=== PATIENT | male | born 1990 | race Caucasian/White ===

== ENCOUNTER → 2019-01-20 | Outpatient (CLI) | payer BC ==
--- NOTE | 2019-01-20 12:46 | XR ---
Right ankle and right foot HISTORY: Pain 3 views of the right ankle, 3 views of the right foot are submitted. Bone mineralization, joint spaces and alignment are maintained. No fracture or dislocation. IMPRESSION: Unremarkable right ankle and right foot.
== END ==
LOC: RADXRYALE 10:21
PROVIDERS: ATTEND Family Medicine
DX: M25.571 Pain in right ankle and joints of right foot (principal); M79.671 Pain in right foot

== ENCOUNTER → 2019-02-07 | Outpatient (CLI) | payer BC ==
--- NOTE | 2019-02-08 15:12 | MR ---
EXAMINATION TYPE: MR ankle RT wo con DATE OF EXAM: 02/07/2019 COMPARISON: None HISTORY: Rt ankle pain and swelling Standard multiplanar, multisequence MRI departmental protocol Multiplanar, multisequence images of the right ankle were acquired. FINDINGS: Ankle mortise is anatomic. Collateral ligaments are intact. There is mild ankle joint effus ion. Achilles tendon is intact. Plantar fascia is intact. The medial and lateral flexor tendons of the ank le appear intact. I see no bony destructive process. IMPRESSION: Minimal ankle joint effusion consistent with mild nonspecific synovitis. No evidence of ligament or t endon tear. No fracture.
== END ==
LOC: RADMRIMAIN 18:01
PROVIDERS: ATTEND Family Medicine
DX: M25.571 Pain in right ankle and joints of right foot (principal); M79.671 Pain in right foot

== ENCOUNTER → 2019-08-26 | Outpatient (CLI) | payer BC ==
--- NOTE | 2019-08-26 10:43 | XR ---
EXAMINATION TYPE: XR lumbosacral spine min 4V DATE OF EXAM: 08/26/2019 COMPARISON: None HISTORY: Injury TECHNIQUE: Five-view lumbar spine FINDINGS: There 5 lumbar-type vertebral bodies. The pedicles are intact. Disc heights are preserved. Vertebral body heights are preserved. Alignment is straightened which can be related to positioning o r muscle spasm. IMPRESSION: 1. No acute osseous abnormality lumbar spine
== END | disposition home or self-care (01) ==
LOC: RADXRYALE 10:02
PROVIDERS: ATTEND Family Medicine
DX: M54.5 Low back pain (principal)
CPT/HCPCS: 72110

== ENCOUNTER → 2022-07-18 | Outpatient (CLI) | payer OTHER ==
--- NOTE | 2022-07-19 08:17 | XR ---
EXAMINATION TYPE: XR abdomen 1V DATE OF EXAM: 07/18/2022 COMPARISON: NONE HISTORY: Pain TECHNIQUE: One view abdominal series FINDINGS: The osseous structures are intact. The bowel gas pattern is nonspecific. Lung bases are clear. Scler otic density involving the left femur and right inferior pubic ramus most likely is a lucency overlyi ng the sacrum and bowel content. IMPRESSION: 1. Nonspecific abdomen. There is a rounded lucency overlying the left sacrum. Recommend bilateral ob lique views of the pelvis of the pelvis to determine if this is related to an intraosseous lesion or overlying bowel gas.
== END | disposition home or self-care (01) ==
LOC: RADXRYALE 16:04
PROVIDERS: ATTEND Physician Assistant
DX: R10.30 Lower abdominal pain, unspecified (principal)
CPT/HCPCS: 74018

== ENCOUNTER → 2022-07-20 | Outpatient (CLI) | payer OTHER ==
--- NOTE | 2022-07-20 08:04 | US ---
EXAMINATION TYPE: US abdomen limited DATE OF EXAM: 07/20/2022 COMPARISON: NONE CLINICAL HISTORY: 32-year-old male R10.30 LOW ABD PAIN. pt is experiencing sudden pain in the lower l eft abd that radiates down to the left groin, no known trauma TECHNIQUE: Scanned over the patient's area of concern. FINDINGS: Ocular Pathologist notes: No abnormality noted by ultrasound. IMPRESSION: Targeted scanning along the left lower quadrant at the site of patient's pain. No discrete abnormalit y of the superficial soft tissues in this region.
--- NOTE | 2022-07-20 08:15 | US ---
EXAMINATION TYPE: US scrotum with doppler. DATE OF EXAM: 07/20/2022 COMPARISON: NONE CLINICAL HISTORY: 32-year-old male R30.0 DYSURIA,R35.0 R39.15 FREQUENCY URINATION. TECHNIQUE: Grayscale and color Doppler Duplex imaging performed of the scrotum. EXAM MEASUREMENTS: TESTICLES: Right Testicle: 4.9 x 2.8 x 3.3 cm Left Testicle: 4.5 x 2.8 x 3.1 cm EPIDIDYMIS HEAD: Right Epididymis: 1.3 x 0.7 cm Left Epididymis: 1.5 x 1.0 cm Doppler performed to assess for testicular vascularity; good bilateral color flow and waveforms are s een. There is no evidence of testicular torsion. Presence of hydroceles: Trace on both sides Presence of varicoceles: no No abnormality seen by ultrasound. IMPRESSION: Trace hydroceles on both sides. Otherwise, unremarkable sonographic examination of the scrotum/testic les.
== END | disposition home or self-care (01) ==
LOC: RADUSWWP 07:06
PROVIDERS: ATTEND Family Medicine
DX: N43.3 Hydrocele, unspecified (principal); R10.32 Left lower quadrant pain; R30.0 Dysuria; M54.50 Low back pain, unspecified
CPT/HCPCS: 76705; 76870; 93975

== ENCOUNTER → 2022-07-20 | Outpatient (CLI) | payer OTHER ==
--- NOTE | 2022-07-21 08:41 | XR ---
EXAMINATION TYPE: XR pelvis AP view DATE OF EXAM: 07/20/2022 COMPARISON: 07/18/2022 HISTORY: Abnormal finding The osseous structures are intact and the joint spaces are preserved. No acute fracture is seen. Vi sualized bowel gas pattern is nonspecific. Lucent area overlying the left sacrum appears persistent on oblique images IMPRESSION: 1. Persistent lucent defect overlying the sacrum. Recommend CT of the pelvis.
== END | disposition home or self-care (01) ==
LOC: RADXRYALE 16:10
PROVIDERS: ATTEND Physician Assistant
DX: R10.30 Lower abdominal pain, unspecified (principal)
CPT/HCPCS: 72170

== ENCOUNTER → 2022-07-28 | Outpatient (CLI) | payer OTHER ==
--- NOTE | 2022-07-28 19:59 | CT ---
EXAMINATION TYPE: CT abdomen pelvis w con CT DLP: 673.9 mGycm, Automated exposure control for dose reduction was used. DATE OF EXAM: 07/28/2022 7:35 PM COMPARISON: Radiograph 07/20/2022, scrotal ultrasound 07/20/2022 CLINICAL INDICATION:Male, 32 years old with history of R10.30; Left side groin pain. Abnormal finding on prior XR and US. TECHNIQUE: Axial CT of the abdomen and pelvis. Sagittal and coronal reformats were created on a [employer] workstation. Contrast used:100cc mL of Isovue 300 with IV Contrast, Oral contrast used: with Oral Contrast FINDINGS: LOWER CHEST: Unremarkable ABDOMEN LIVER: Unremarkable GALLBLADDER AND BILE DUCTS: Unremarkable. PANCREAS: Unremarkable. SPLEEN: Unremarkable. ADRENAL GLANDS: Unremarkable. KIDNEYS AND URETERS: Right nonobstructing calculi measuring up to 3 mm. Left renal cyst. No obstructi ve uropathy. PELVIS BLADDER: Unremarkable REPRODUCTIVE: Unremarkable. ABDOMEN & PELVIS STOMACH AND BOWEL: No evidence of bowel obstruction. PERITONEUM/RETROPERITONEUM: No evidence of pneumoperitoneum or free fluid. VASCULATURE: No evidence of aortic aneurysm. MUSCULOSKELETAL: There is a focus of gas is seen within the left iliac bone correlating with lucency seen on prior radiograph. Uncertain no evidence for aggressive features. This does abut the sacroilia c joint This measures up to 12 mm. And -870 Hounsfield units. LYMPH NODES: No gross evidence for lymphadenopathy. SOFT TISSUE/ABDOMINAL WALL: Fat-containing umbilical hernia. No evidence for hernia within the groin. IMPRESSION: 1. No acute abdominal process. No evidence for left groin hernia. No obstructive uropathy. 2. Lucent defect overlying the left sacrum correlates with gas within the left iliac bone. This is l ikely on a degenerative basis with the sacroiliac joint.
== END | disposition home or self-care (01) ==
LOC: RADCTMAIN 17:29
PROVIDERS: ATTEND Family Medicine
DX: R10.30 Lower abdominal pain, unspecified (principal); R93.89 Abnormal findings on diagnostic imaging of other specified body structures
CPT/HCPCS: 74177; Q9967

== ENCOUNTER 2023-08-27 22:05 | Emergency (ER) | payer OTHER ==
[2023-08-27 22:45] VITALS: BP 137/89; PULSE 76; RESP 18; TEMP 98.3
--- NOTE | 2023-08-27 22:57 | ED ---
Arrhythmia/Palpitations HPI - General Chief Complaint: Arrhythmia/Palpitations Stated Complaint: Chest pain,Afib Time Seen by Provider: 08/27/23 22:30 Source: patient Mode of arrival: ambulatory Limitations: no limitations - History of Present Illness Initial Comments: 33 year old male with past medical history of WPW, A-fib who presents emergency department reporting palpitations. States that he does have a history of A-fib and is pretty conscientious as to when he is going into A-fib. States that he frequently has episodes however over the past couple of days the episodes have been excessive. He had previous ablation by Dr. Suarez. States that he has not had any issues since his ablation when he was 17 years old. He does not ta ke any medications. Denies any stimulant use. Patient denies any chest pain or difficulty breathing. No fevers. No other alleviating, precipitating or modifying factors - Related Data Previous Rx's Medication Instructions Recorded Hydrocodone/Acetaminophen [[place] 1 tab PO Q4HR PRN #15 tab 02/04/16 5-325] Naproxen 500 mg PO Q12HR #20 tab 02/04/16 Allergies Allergy/AdvReac Type Severity Reaction Status Date / Time coconut Allergy Unknown Verified 08/27/23 22:26 Penicillins Allergy Unknown Verified 08/27/23 22:26 Childhood oatmeal Allergy Severe Unknown Uncoded 08/27/23 22:26 Review of Systems ROS Statement: Those systems with pertinent positive or pertinent negative responses have been documented in the HPI. ROS Other: All systems not noted in ROS Statement are negative. Past Medical History Past Medical History: Atrial Fibrillation, Asthma Additional Past Medical History / Comment(s): WPW History of Any Multi-Drug Resistant Organisms: None Reported Past Surgical History: Ablation Past Psychological History: No Psychological Hx Reported Smoking Status: Never smoker Past Alcohol Use History: None Reported Past Drug Use History: None Reported General Exam Limitations: no limitations General appearance: alert, in no apparent distress Head exam: Present: atraumatic, normocephalic, normal inspection Eye exam: Present: normal appearance, PERRL, EOMI. Absent: scleral icterus, conjunctival injection, periorbital swelling ENT exam: Present: normal exam, mucous membranes moist Neck exam: Present: normal inspection. Absent: tenderness, meningismus, lymphadenopathy Respiratory exam: Present: normal lung sounds bilaterally. Absent: respiratory distress, wheezes, rales, rhonchi, stridor Cardiovascular Exam: Present: regular rate, normal rhythm, normal heart sounds. Absent: systolic murmur, diastolic murmur, rubs, gallop, clicks GI/Abdominal exam: Present: soft, normal bowel sounds. Absent: distended, tenderness, guarding, rebound, rigid Extremities exam: Present: normal inspection, full ROM, normal capillary refill. Absent: tenderness, pedal edema, joint swelling, calf tenderness Back exam: Present: normal inspection Neurological exam: Present: alert, oriented X3, CN II-XII intact Psychiatric exam: Present: normal affect, normal mood Skin exam: Present: warm, dry, intact, normal color. Absent: rash Course Vital Signs 08/27/23 22:24 Temperature 98.3 F Pulse Rate 76 Respiratory 18 Rate Blood Pressure 137/89 O2 Sat by Pulse 99 Oximetry Medical Decision Making - Medical Decision Making Was pt. sent in by a medical professional or institution (, PA, LEAD DRIVER, urgent care, hospital, or prison...) When possible be specific @ -No Did you speak to anyone other than the patient for history (EMS, parent, family, police, friend...)? What history was obtained from this source @ -No Did you review nursing and triage notes (agree or disagree)? Why? @ -I reviewed and agree with nursing and triage notes Were old charts reviewed (outside hosp., previous admission, EMS record, old EKG, old radiological studies, urgent care reports/EKG's, prison records)? Report findings @ -No old charts were reviewed Differential Diagnosis (chest pain, altered mental status, abdominal pain women, abdominal pain men, vaginal bleeding, weakness, fever, dyspnea, syncope, headache, dizziness, GI bleed, back pain, seizure, CVA, palpatations, mental health, musculoskeletal)? @ -Differential Palpitations Ventricular arrhythmias, atrial arrhythmias, myocardial infarction, anemia, thyrotoxicosis, electrolyte imbalance, hypokalemia, pulmonary embolism, pulmonary disease, drugs, alcohol, anxiety, stress.... This is not meant to be an all-inclusive list. EKG interpreted by me (3pts min.). @ -yes and demonstrates sinus rhythm with a rate of 77. CT interval 142. QRS 95. QTc of 372. No acute ST segment elevation or depression X-rays interpreted by me (1pt min.). @ -None done CT interpreted by me (1pt min.). @ -None done U/S interpreted by me (1pt. min.). @ -None done What testing was considered but not performed or refused? (CT, X-rays, U/S, labs)? Why? @ -Laboratory studies were considered however patient refused as he did not want to stay any longer in the emergency department. He was satisfied knowing that he was not in A-fib What meds were considered but not given or refused? Why? @ -None Did you discuss the management of the patient with other professionals (professionals i.e. Dr., PA, LEAD DRIVER, lab, RT, psych nurse, rn social services, palliative care physician, teacher, sanitation officer, casework supervisor)? Give summary @ -No Was smoking cessation discussed for >3mins.? @ -No Was critical care preformed (if so, how long)? @ -No Were there social determinants of health that impacted care today? How? (Homelessness, low income, unemployed, alcoholism, drug addiction, transportation, low edu. Level, literacy, decrease access to med. care, snf, rehab)? @ -No Was there de-escalation of care discussed even if they declined (Discuss DNR or withdrawal of care, Hospice)? DNR status @ -No What co-morbidities impacted this encounter? (DM, HTN, Smoking, COPD, CAD, Cancer, CVA, ARF, Chemo, Hep., AIDS, mental health diagnosis, sleep apnea, morbid obesity)? @ -WPW, A-fib Was patient admitted / discharged? Hospital course, mention meds given and route, prescriptions, significant lab abnormalities, going to OR and other pertinent info. @ -Upon arrival patient was seen and evaluated in room 29. Thorough history and physical exam was performed. Twelve-lead EKG was performed which d emonstrates that the patient is in a normal sinus rhythm. I did offer laboratory studies however patient refused as he is in a normal rhythm at this time. Patient will be discharged home and needs to follow-up with his process engineering manager. Recommend Holter monitoring. Request that the patient return to the emergency department for any new or worsening symptoms. Patient agreeable to plan was discharged in stable condition Undiagnosed new problem with uncertain prognosis? @ -No Drug Therapy requiring intensive monitoring for toxicity (Heparin, Nitro, Insulin, Cardizem)? @ -No Were any procedures done? @ -No Diagnosis/symptom? @ -Acute palpitations, history of WPW/A-fib Acute, or Chronic, or Acute on Chronic? @ -Acute Uncomplicated (without systemic symptoms) or Complicated (systemic symptoms)? @ -Complicated Side effects of treatment? @ -No Exacerbation, Progression, or Severe Exacerbation? @ -No Poses a threat to life or bodily function? How? (Chest pain, [place], [place], pneumonia, PE, COPD, DKA, ARF, appy, cholecystitis, CVA, Diverticulitis, Homicidal, Suicidal, threat to staff... and all critical care pts) @ -No Disposition Clinical Impression: Palpitations Disposition: HOME SELF-CARE Condition: Stable Instructions (If sedation given, give patient instructions): Heart Palpitations (ED) Additional Instructions: Call the process engineering manager in the morning and make an appointment. You need a Holter monitor. Follow-up for any new or worsening symptoms Is patient prescribed a controlled substance at d/c from ED?: No Referrals: Seth Wagner DO [Primary Care Provider] - 1-2 days [facility] [Provider Group] - 1-2 days Time of Disposition: 22:56
== END 2023-08-27 23:00 | disposition home or self-care (01) ==
LOC: EC 22:05
DX: R00.2 Palpitations (principal); I48.91 Unspecified atrial fibrillation; Z88.0 Allergy status to penicillin; Z91.018 Allergy to other foods; Z88.8 Allergy status to other drugs, medicaments and biological substances
CPT/HCPCS: 99284

== ENCOUNTER 2024-03-11 11:05 | Emergency (ER) | payer OTHER ==
[2024-03-11 11:34] LABS: Basophils # (A) 0.1 k/uL (0-0.2); Basophils % (A) 1 %; Eosinophils # (A) 0.1 k/uL (0-0.7); Eosinophils % (A) 2 %; HCT 44.1 % (39.0-53.0); Lymphocytes # (A) 1.9 k/uL (1.0-4.8); Lymphocytes % (A) 29 %; MCH 29.9 pg (25.0-35.0); MCV 88.2 fL (80.0-100.0); Mean Platelet Volume 7.9; Monocytes # (A) 0.6 k/uL (0-1.0); Monocytes % (A) 9 %; Neutrophils # (A) 3.8 k/uL (1.3-7.7); Neutrophils % (A) 58 %; Platelet Count 222 k/uL (150-450); RDW 12.4 % (11.5-15.5); WBC 6.5 k/uL (3.8-10.6)
[2024-03-11] MEDS: ONDANSETRON 4 MG/2 ML VIAL IVP STA (11:56)
[2024-03-11] MEDS: FAMOTIDINE 20 MG/2 ML VIAL IV STA (11:57)
[2024-03-11 12:25] LABS: ALT 30 U/L (4-49); AST 22 U/L (17-59); African American GFR (CKD) >90 (>60 ml/min/1.73 sqM); Albumin 4.2 g/dL (3.5-5.0); Alkaline Phosphatase 99 U/L (38-126); Anion Gap 6 mmol/L; Blood Urea Nitrogen 13 mg/dL (9-20); Calcium 9.5 mg/dL (8.4-10.2); Carbon Dioxide 26 mmol/L (22-30); Chloride 107 mmol/L (98-107); Glucose 99 mg/dL (74-99); Non-African American GFR(CKD) >90 (>60 ml/min/1.73 sqM); Potassium 4.4 mmol/L (3.5-5.1); Sodium 139 mmol/L (137-145); Total Bilirubin 0.6 mg/dL (0.2-1.3); Total Protein 7.1 g/dL (6.3-8.2)
--- NOTE | 2024-03-11 12:37 | CT ---
EXAMINATION TYPE: CT abdomen pelvis w con CT DLP: 1026.3 mGycm, Automated exposure control for dose reduction was used. DATE OF EXAM: 03/11/2024 12:29 PM COMPARISON: CT abdomen pelvis 07/28/2022 CLINICAL INDICATION:Male, 33 years old with history of abdominal pain LLQ; LLQ pain TECHNIQUE: Standard CT of the abdomen and pelvis following the administration of 100 cc of Isovue 3 00 IV contrast material. Coronal and sagittal reformats were performed. FINDINGS: LOWER CHEST: Minimal posterior dependent subsegmental atelectasis is noted. ABDOMEN LIVER: Unremarkable GALLBLADDER AND BILE DUCTS: Unremarkable. PANCREAS: Unremarkable. SPLEEN: Unremarkable. ADRENAL GLANDS: Unremarkable. KIDNEYS AND URETERS: No evidence of hydronephrosis. Nonobstructive right 3 mm renal calculus. No left renal calculi. The kidneys enhance symmetrically. Subcentimeter cyst within the lower pole of the le ft renal cortex. Contrast is demonstrated within both renal collecting systems on delayed phase. PELVIS BLADDER: Unremarkable REPRODUCTIVE: Unremarkable. ABDOMEN & PELVIS STOMACH AND BOWEL: No hiatal hernia. Tiny periampullary duodenal diverticulum.The appendix is within normal limits. No focal bowel wall thickening. Left descending colon pericolonic region of fat strand ing which is new from prior examination (series 201, image 48). This is somewhat circular around a fo cus of fat. No evidence of bowel obstruction. PERITONEUM: No evidence of pneumoperitoneum or free fluid. VASCULATURE: No evidence of aortic aneurysm. MUSCULOSKELETAL: No acute osseous abnormalities. Similar degenerative changes of the left SI joint wi th subchondral cystic change. LYMPH NODES: No evidence for lymphadenopathy. SOFT TISSUE/ABDOMINAL WALL: Unremarkable IMPRESSION: Left mid abdomen epiploic appendagitis which is a self-limiting condition. [facility], , 03/11/2024 12:35 PM
--- NOTE | 2024-03-11 13:03 | ED ---
General Adult HPI - General Chief complaint: Abdominal Pain Stated complaint: ABD pain Time Seen by Provider: 03/11/24 11:14 Source: patient, RN notes reviewed, old records reviewed Mode of arrival: ambulatory Limitations: no limitations - History of Present Illness Initial comments: 33-year-old male presenting with left lower quadrant pain over the past several days. Patient has had some diarrhea. He was seen at urgent care and noted to have focal tenderness and was sent to the emergency department for CT scan. Patient denies fever. Denies vomiting. He has had a normal appetite. - Related Data Previous Rx's Medication Instructions Recorded Hydrocodone/Acetaminophen [[place] 1 tab PO Q4HR PRN #15 tab 02/04/16 5-325] Naproxen 500 mg PO Q12HR #20 tab 02/04/16 Ibuprofen [Motrin] 600 mg PO Q8HR PRN #24 tab 03/11/24 Allergies Allergy/AdvReac Type Severity Reaction Status Date / Time coconut Allergy Unknown Verified 03/11/24 11:07 Penicillins Allergy Unknown Verified 03/11/24 11:07 Childhood oatmeal Allergy Severe Unknown Uncoded 03/11/24 11:07 Review of Systems ROS Statement: Those systems with pertinent positive or pertinent negative responses have been documented in the HPI. ROS Other: All systems not noted in ROS Statement are negative. Past Medical History Past Medical History: Atrial Fibrillation, Asthma Additional Past Medical History / Comment(s): WPW History of Any Multi-Drug Resistant Organisms: None Reported Past Surgical History: Ablation Past Psychological History: No Psychological Hx Reported Smoking Status: Never smoker Past Alcohol Use History: None Reported Past Drug Use History: None Reported General Exam Limitations: no limitations General appearance: alert, in no apparent distress Head exam: Present: atraumatic, normocephalic Eye exam: Present: normal appearance, PERRL ENT exam: Present: normal exam Neck exam: Present: normal inspection. Absent: tenderness, meningismus Respiratory exam: Present: normal lung sounds bilaterally. Absent: respiratory distress, wheezes Cardiovascular Exam: Present: regular rate, normal rhythm GI/Abdominal exam: Present: soft, tenderness (Lower quadrant). Absent: distended, guarding, rebound Extremities exam: Present: normal inspection, normal capillary refill Neurological exam: Present: alert, oriented X3 Psychiatric exam: Present: normal affect, normal mood Skin exam: Present: warm, dry, intact Course Vital Signs 11/26/24 11:08 Temperature 98.5 F Pulse Rate 92 Respiratory 18 Rate Blood Pressure 132/78 O2 Sat by Pulse 98 Oximetry Medical Decision Making - Medical Decision Making Was pt. sent in by a medical professional or institution (CECILY Cho, JAVA FLEX DEVELOPER, urgent care, hospital, or [facility]...) When possible be specific @Sent in from urgent care for CT scan Did you speak to anyone other than the patient for history (EMS, parent, family, police, friend...)? What history was obtained from this source @ -No Did you review nursing and triage notes (agree or disagree)? Why? @ -I reviewed and agree with nursing and triage notes Were old charts reviewed (outside hosp., previous admission, EMS record, old EKG, old radiological studies, urgent care reports/EKG's, [facility] records)? Report findings @ -No old charts were reviewed Differential Abdominal Pain Men: Appendicitis, cholecystitis, diverticulosis, ischemic bowel, pancreatitis, hepatitis, UTI, gastroenteritis, AAA, incarcerated hernia, bowel obstruction, constipation, inflammatory bowel, hepatitis, peptic ulcer disease, splenic in farction, perforated viscus, testicular torsion, this is not meant to be an all- inclusive list EKG interpreted by me (3pts min.). @ -As above X-rays interpreted by me (1pt min.). @ -None done CT interpreted by me (1pt min.). @CT of the abdomen pelvis with contrast shows appendagitis U/S interpreted by me (1pt. min.). @ -None done What testing was considered but not performed or refused? (CT, X-rays, U/S, labs)? Why? @ -None What meds were considered but not given or refused? Why? @ -None Did you discuss the management of the patient with other professionals (professionals i.e. CECILY Cho, JAVA FLEX DEVELOPER, lab, RT, psych nurse, marriage and family social worker, process controls technician, teacher, parking regulation enforcement officer, medical case worker)? Give summary @ -No Was smoking cessation discussed for >3mins.? @ -No Was critical care preformed (if so, how long)? @ -No Were there social determinants of health that impacted care today? How? (Homelessness, low income, unemployed, alcoholism, drug addiction, transportation, low edu. Level, literacy, decrease access to med. care, skilled nursing, rehab)? @ -No Was there de-escalation of care discussed even if they declined (Discuss DNR or withdrawal of care, Hospice)? DNR status @ -No What co-morbidities impacted this encounter? (DM, HTN, Smoking, COPD, CAD, Cancer, CVA, ARF, Chemo, Hep., AIDS, mental health diagnosis, sleep apnea, morbid obesity)? @ -None Was patient admitted / discharged? Hospital course, mention meds given and route, prescriptions, significant lab abnormalities, going to OR and other pertinent info. @33 male with left-sided lower abdominal pain. CT showing appendagitis. Patient has normal CBC, normal CMP, will be treated with Motrin and follow-up with his primary care provider. Undiagnosed new problem with uncertain prognosis? @ -No Drug Therapy requiring intensive monitoring for toxicity (Heparin, Nitro, Insulin, Cardizem)? @ -No Were any procedures done? @ -No Diagnosis/symptom? @Abdominal pain Acute, or Chronic, or Acute on Chronic? @ -Acute Uncomplicated (without systemic symptoms) or Complicated (systemic symptoms)? @ -Default Side effects of treatment? @ -No Exacerbation, Progression, or Severe Exacerbation? @ -No Poses a threat to life or bodily function? How? (Chest pain, [place], [place], pneumonia, PE, COPD, DKA, ARF, appy, cholecystitis, CVA, Diverticulitis, Homicidal, Suicidal, threat to staff... and all critical care pts) @ -No - Lab Data Result diagrams: 03/11/24 11:03/11/24 11:29 Lab Results 03/11/24 03/11/24 03/11/24 Range/Units 11:29 11: 11:29 WBC 6.5 (3.8-10.6) k/uL RBC 5.00 (4.30-5.90) m/uL Hgb 15.0 (13.0-17.5) gm/dL Hct 44.1 (39.0-53.0) % MCV 88.2 (80.0-100.0) fL MCH 29.9 (25.0-35.0) pg MCHC 34.0 (31.0-37.0) g/dL RDW 12.4 (11.5-15.5) % Plt Count 222 (150-450) k/uL MPV 7.9 Neutrophils % 58 % Lymphocytes % 29 % Monocytes % 9 % Eosinophils % 2 % Basophils % 1 % Neutrophils # 3.8 (1.3-7.7) k/uL Lymphocytes # 1.9 (1.0-4.8) k/uL Monocytes # 0.6 (0-1.0) k/uL Eosinophils # 0.1 (0-0.7) k/uL Basophils # 0.1 (0-0.2) k/uL Sodium 139 (137-145) mmol/L Potassium 4.4 (3.5-5.1) mmol/L Chloride 107 (98-107) mmol/L Carbon Dioxide 26 (22-30) mmol/L Anion Gap 6 mmol/L BUN 13 (9-20) mg/dL Creatinine 0.89 (0.66-1.25) mg/dL Est GFR (CKD-EPI)AfAm >90 (>60 ml/min/1.73 sqM) Est GFR (CKD-EPI)NonAf >90 (>60 ml/min/1.73 sqM) Glucose 99 (74-99) mg/dL Plasma Lactic Acid Patel 0.9 (0.7-2.0) mmol/L Calcium 9.5 (8.4-10.2) mg/dL Total Bilirubin 0.6 (0.2-1.3) mg/dL AST 22 (17-59) U/L ALT 30 (4-49) U/L Alkaline Phosphatase 99 (38-126) U/L Total Protein 7.1 (6.3-8.2) g/dL Albumin 4.2 (3.5-5.0) g/dL Disposition Clinical Impression: Abdominal pain Disposition: HOME SELF-CARE Condition: Good Instructions (If sedation given, give patient instructions): Abdominal Pain (ED) Prescriptions: Ibuprofen [Motrin] 600 mg PO Q8HR PRN #24 tab PRN Reason: Pain Is patient prescribed a controlled substance at d/c from ED?: No Referrals: Seth Wagner DO [Primary Care Provider] - 1-2 days Time of Disposition: 13:05
[2024-03-11 13:18] VITALS: BP 125/87; PULSE 91; RESP 16; TEMP 98
== END 2024-03-11 13:18 | disposition home or self-care (01) ==
LOC: EC 11:05
DX: K63.89 Other specified diseases of intestine (principal); Z88.0 Allergy status to penicillin; Z88.8 Allergy status to other drugs, medicaments and biological substances; Z91.018 Allergy to other foods
CPT/HCPCS: 36415; 80053; 83605; 85025; 74177; 99284; 96374; 96375; J2405; J3490; Q9967